=== PATIENT | male | born 1970 | race Caucasian/White ===

== ENCOUNTER 2016-11-24 05:13 | Observation (INO) | payer BC ==
[~2016-11-24] VITALS: Ht 182.9 cm; Wt 77.3 kg
[2016-11-24 05:16] VITALS: BP 135/83; PULSE 108; RESP 16; TEMP 97.7; O2SAT 96
[2016-11-24] MEDS ORDERED: ADDE10 PO (05:20)
[2016-11-24] MEDS ORDERED: HYDR-3366 PO (05:20)
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
[2016-11-24] MEDS ORDERED: ONDANSETRON HCL 4 MG/2 ML VIAL IVP ONE (05:45)
[2016-11-24] MEDS ORDERED: SODIUM CHLORIDE 0.9% FLUSH 5 ML FLUSH IVF PRN (05:45)
[2016-11-24] MEDS ORDERED: LIDOCAINE 1%/EPINEPHrine 1:100,000 SOLN 20 ML VIAL INFIL ONE (05:45)
--- NOTE | 2016-11-24 05:57 | PD ---
Physical Exam Narrative I was asked by Dr. Vaca repair patient's scalp laceration. Please see his documentation for full H&P. Data Data Last Documented VS Vital Signs Date Time Temp Pulse Resp B/P Pulse Ox O2 Delivery O2 Flow Rate FiO2 11/24/16 05:16 97.7 108 16 135/83 96 Orders Alcohol (Ethanol) (11/24/16 05:37) Basic Metabolic Panel (Bmp) (11/24/16 05:37) Complete Blood Count With Diff (11/24/16 05:37) Drug Screen, Random Urine (11/24/16 05:37) Ct Brain W/O Iv Contrast(Rout) (11/24/16 05:37) Ecg Monitoring (11/24/16 05:37) Ice/Cold Pack (11/24/16 05:37) Iv Access Insert/Monitor (11/24/16 05:37) Ondansetron Inj (Zofran Inj) (11/24/16 05:45) Sodium Chloride 0.9% Flush (Ns Flush) (11/24/16 05:45) Lidocai-Epi 1%-1:100,000 Inj (Xylocaine- (11/24/16 05:45) MDM Supervised Visit with WIL: No Procedures Procedure Narrative LACERATION REPAIR LOCATION: Left parietal lobe LENGTH: 3 cm NUMBER OF STITCHES/SHORTY: 4 shorty REPAIR: Verbal consent was obtained. The area of the laceration was cleaned and prepped. The laceration was infiltrated with lidocaine with epi. The wound was copiously irrigated and explored without evidence of foreign body, bony involvement, ligament injury, tendon injury, or neurovascular injury. The wound was closed using shorty. This was a single layer repair. A sterile dressing was applied by nurse. The patient was advised to keep the affected area as clean and dry as possible using soap and water. There were no complications. Patient tolerated the procedure well. Reece Hernandez Nov 24, 2016 05:57
[2016-11-24 06:10] LABS: AUTOMATED NEUTROPHIL # 9.5 TH/MM3 (1.8-7.7); BASOPHIL # 0.1 TH/MM3 (0-0.2); BASOPHIL % 0.6 % (0.0-2.0); EOSINOPHIL # 0.2 TH/MM3 (0-0.4); EOSINOPHIL % 1.5 % (0.0-4.0); HEMATOCRIT 42.5 % (39.0-51.0); HEMO FLAGS DIFF FINAL; LYMPH % 16.9 % (9.0-44.0); MEAN CELL VOLUME 96.5 FL (80.0-100.0); MEAN CORPUSCULAR HEMOGLOBIN 33.6 PG (27.0-34.0); MEAN CORPUSCULAR HGB CONC 34.8 % (32.0-36.0); PLATELET COUNT 229 TH/MM3 (150-450); RED BLOOD COUNT 4.41 MIL/MM3 (4.50-5.90); RED CELL DISTRIBUTION WIDTH 13.8 % (11.6-17.2); WHITE BLOOD COUNT 12.1 TH/MM3 (4.0-11.0)
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
[2016-11-24 06:20] LABS: AMPHETAMINE, URINE POS (NEG); BARBITURATES, URINE NEG (NEG); COCAINE, URINE NEG (NEG)
[2016-11-24 06:30] LABS: BICARBONATE 25.2 MEQ/L (21.0-32.0); POTASSIUM 4.3 MEQ/L (3.5-5.1)
[2016-11-24] MEDS ORDERED: SODIUM CHLOR 0.9% 1000 ML INJ 1,000 ML IV SCH (06:34)
[2016-11-24] MEDS ORDERED: NICOTINE 21 MG/24 HR PATCH TD ONE (06:45)
[2016-11-24] MEDS ORDERED: SODIUM CHLORIDE 0.9% FLUSH 5 ML FLUSH IV FLUSH PRN (06:45)
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
[2016-11-24] MEDS ORDERED: oxyCODONE/ACETAMINOPHEN 10 MG/325 MG TAB PO PRN (07:30)
--- NOTE | 2016-11-24 07:31 | PD.AMA ---
Against Medical Advice Note Discharge Disposition: Against Medical Advice Pt Condition on Discharge: Stable Recommended Treatment Course Observation with repeat imaging in 24 hrs AMA Statement Patient Scott Mendieta has decided to leave the hospital against medical advice. This patient has the capacity to refuse care and understands the risks of leaving, including permanent disability and/or , and has had an opportunity to ask questions about his condition. The patient has been informed that he may return for care at any time. Mason Chamberlain Nov 24, 2016 07:31
[2016-11-24] MEDS ORDERED: NICOTINE 21 MG/24 HR PATCH TD SCH (09:00)
[2016-11-24] MEDS ORDERED: SODIUM CHLORIDE 0.9% FLUSH 5 ML FLUSH IV FLUSH SCH (09:00)
[2016-11-24] MEDS ORDERED: DIVALPROEX SODIUM E.R. 250 MG TAB PO SCH (09:00)
[2016-11-25] MEDS ORDERED: REMOVE OLD PATCH TD SCH (09:00)
== END 2016-11-24 07:22 | disposition left against medical advice (07) ==
LOC: EDBD → NEPC 05:13 → NEDA 06:37
PROVIDERS: ADMIT Neurological Surgery; ATTEND Neurological Surgery
DX: S06.5X9A Traumatic subdural hemorrhage with loss of consciousness of unspecified duration, initial encounter (principal); F90.9 Attention-deficit hyperactivity disorder, unspecified type; G43.909 Migraine, unspecified, not intractable, without status migrainosus; F17.200 Nicotine dependence, unspecified, uncomplicated; Z86.73 Personal history of transient ischemic attack (TIA), and cerebral infarction without residual deficits; Z91.030 Bee allergy status; W19.XXXA Unspecified fall, initial encounter; Y93.65 Activity, lacrosse and field hockey
CPT/HCPCS: 12002; 70450; 80048; 80307; 85025; 96374; 99285; G0378; J2405; L0150